=== PATIENT | male | born 1960 | race Caucasian/White ===

== ENCOUNTER → 2017-07-18 | Outpatient (CLI) | payer MEDICARE, MEDICAID ==
[~2017-07-18] MED LIST: BROMFED DM COU118 M1 PO; MOTRIN800 MG PO; Miralax Powder255 GM PO; Motrin,Rufen800 MG PO; NKHM; PROPRANOLOL HCL60 MG PO; PROPRANOLOL HYD60 M1 PO; VIBRAMYCIN100 MG PO
[2017-07-18 11:32] LABS: BASO % 0.5 % (0.0-1.0); EOS # 0.1 10*3/uL (0.0-0.4); EOS % 0.9 % (1.0-4.0); HEMATOCRIT 48.9 % (42.0-52.0); HEMOGLOBIN 16.2 g/dl (14.0-18.0); LYMPH # 2.2 10*3/uL (1.3-4.4); LYMPH % 37.6 % (27.0-41.0); MEAN CELL VOLUME 90.7 fl (80.0-94.0); MEAN CORPUSCULAR HGB 30.1 pg (27.0-31.0); MEAN CORPUSCULAR HGB CONC 33.1 g/dl (33.0-37.0); MEAN PLATELET VOLUME 11.8 fl (9.6-12.3); MONO # 0.5 10*3/uL (0.1-1.0); MONO % 8.4 % (3.0-9.0); NEUT % 52.3 % (47.0-73.0); PLATELET COUNT AUTOMATED 237 10*3/uL (130-400); RED BLOOD COUNT 5.39 10*6/uL (4.50-5.90); RED CELL DISTRI WIDTH 13.5 % (0-14.5); WHITE BLOOD COUNT 5.8 10*3/uL (4.8-10.8)
[2017-07-18 12:03] LABS: CHLORIDE 105 mmol/L (98-107); POTASSIUM 3.3 mmol/L (3.5-5.1); SODIUM 141 mmol/L (136-145)
[2017-07-18 12:18] LABS: ALBUMIN 4.6 gm/dl (3.1-4.5); ALKALINE PHOSPHATASE 81 U/L (45-117); BUN 17 mg/dl (7-24); SGOT/AST 36 IU/L (3-35); SGPT/ALT 25 U/L (12-78); TOTAL PROTEIN 8.1 gm/dL (6.4-8.2)
== END | disposition home or self-care (01) ==
LOC: LAB 10:23 → US 10:30
PROVIDERS: Internal Medicine
DX: R10.84 Generalized abdominal pain (principal); R11.11 Vomiting without nausea

== ENCOUNTER → 2020-10-30 | Outpatient (CLI) | payer MEDICARE, MEDICAID | END | disposition home or self-care (01) | LOC: COVID19 16:38 | PROVIDERS: ATTEND Internal Medicine | DX: Z11.52 Encounter for screening for COVID-19 (principal) ==